=== PATIENT | male | born 1965 | race African-American/Black ===

== ENCOUNTER 2024-03-24 15:13 | Emergency (ER) | payer MEDICAID ==
[~2024-03-24] VITALS: Ht 188 cm; Wt 91.0 kg
[2024-03-24 15:20] VITALS: BP 117/75; PULSE 77; RESP 18; TEMP 98.7; O2SAT 99
[2024-03-24] MEDS ORDERED: CEPH500C2 MT (17:51)
[2024-03-24] MEDS ORDERED: SULF1TAB48 MT (17:51)
[2024-03-25] MEDS ORDERED: CEPH500C2 MT (19:40)
[2024-03-25] MEDS ORDERED: SULF1TAB48 MT (19:40)
== END 2024-03-24 18:03 | disposition home or self-care (01) ==
LOC: ER 15:13
DX: L03.90 Cellulitis, unspecified (principal); Z98.890 Other specified postprocedural states
CPT/HCPCS: 73130; 99283

== ENCOUNTER 2024-03-25 17:59 | Emergency (ER) | payer MEDICAID ==
[~2024-03-25] VITALS: Ht 177.8 cm; Wt 83.0 kg
[~2024-03-25 17:59] MED LIST: CEPH500C2 MT; SULF1TAB48 MT
[2024-03-25 18:07] VITALS: O2SAT 98
[2024-03-25] MEDS ORDERED: CEPH500C2 MT (19:40)
[2024-03-25] MEDS ORDERED: SULF1TAB48 MT (19:40)
[2024-03-25 19:50] VITALS: BP 127/82; PULSE 77; RESP 16; TEMP 98
== END 2024-03-25 19:50 | disposition home or self-care (01) ==
LOC: ER 17:59
DX: L03.012 Cellulitis of left finger (principal); Z76.0 Encounter for issue of repeat prescription
CPT/HCPCS: 99281